=== PATIENT | female | born 1985 | race Caucasian/White ===

== ENCOUNTER 2017-11-02 19:57 | Emergency (ER) | payer MEDICAID ==
[~2017-11-02] VITALS: Ht 154.9 cm; Wt 59.0 kg
[~2017-11-02 19:57] MED LIST: DM/P295L17 PO; PHEN1PAC PO
[2017-11-02] MEDS ORDERED: SODIUM CHLORIDE 0.9% 1,000 ML IV ONE ×2 (23:10)
[2017-11-02 23:51] LABS: CLARITY URINE TURBID (CLEAR); COLOR URINE YELLOW (YELLOW); KETONES URINE NEGATIVE (NEGATIVE); LEUKOCYTE ESTERASE URINE 3+ (NEGATIVE); NITRITE URINE NEGATIVE (NEGATIVE); OCCULT BLOOD URINE 2+ (NEGATIVE); PH URINE 5.5 (4.5-8.0); PROTEIN URINE TRACE (NEGATIVE); SPECIFIC GRAVITY URINE 1.019 (1.005-1.030); UROBILINOGEN URINE 0.2 E.U./dL (0.2-1.0)
[2017-11-03 00:34] LABS: *AMPHETAMINES SCREEN URINE NEGATIVE (NEGATIVE); *BARBITURATES SCREEN URINE NEGATIVE (NEGATIVE); *BENZODIAZEPINES SCREEN URINE NEGATIVE (NEGATIVE); *COCAINE SCREEN URINE NEGATIVE (NEGATIVE); CANNABINOID URINE SCREEN NEGATIVE (NEGATIVE); METHADONE URINE SCREEN NEGATIVE (NEGATIVE); OPIATES URINE SCREEN NEGATIVE (NEGATIVE); PHENCYCLIDINE URINE SCREEN NEGATIVE (NEGATIVE)
[2017-11-03] MEDS ORDERED: CEFTRIAXONE 1 G PREMIX 50 ML IV NR (00:45)
[2017-11-03 01:10] LABS: BASOPHILS % 0.4 % (0.0-2.0); EOSINOPHILS % 1.4 % (0.0-5.0); LYMPHOCYTES % 22.9 % (20.0-50.0); MEAN CORPUSCULAR HEMOGLOBIN 14.6 pg (28.0-32.0); MEAN CORPUSCULAR VOLUME 51.8 fL (81.0-99.0); MEAN PLATELET VOLUME 8.6 fl (7.4-10.4); MONOCYTES % 5.3 % (2.0-8.0); PLATELET 425 x1000/uL (130-400); RED BLOOD CELL COUNT 3.79 mill/uL (4.2-5.4); RED CELL DISTRIBUTION WIDTH 19.7 % (11.6-14.6)
[2017-11-03 01:13] LABS: PROTHROMBIN TIME 10.7 sec (9.4-11.6)
[2017-11-03 01:17] LABS: HEMATOCRIT. 19.6 % (36.0-48.0); HEMOGLOBIN. 5.5 g/dL (12.0-16.0)
[2017-11-03 01:23] LABS: CHLORIDE 106 mEq/L (98-107)
[2017-11-03 01:40] LABS: CARBON DIOXIDE 27 mEq/L (21-32); ETHANOL BLOOD < 10 mg/dL
[2017-11-03 01:48] LABS: B-HCG QUANTITATIVE 104485 mIU/mL (<3)
[2017-11-03] MEDS ORDERED: POTASSIUM BICARB/CIT ACID 25 MEQ TABLET.EFF PO NR (03:30)
[2017-11-03 05:38] LABS: PLATELET ESTIMATE SLIGHTLY INCREASED
[2017-11-03 08:57] VITALS: BP 123/81
== END 2017-11-03 08:59 | disposition home or self-care (01) ==
LOC: ER 21:08
DX: O99.011 Anemia complicating pregnancy, first trimester (principal); O23.41 Unspecified infection of urinary tract in pregnancy, first trimester; O99.281 Endocrine, nutritional and metabolic diseases complicating pregnancy, first trimester; D50.9 Iron deficiency anemia, unspecified; E87.6 Hypokalemia; Z3A.08 8 weeks gestation of pregnancy
CPT/HCPCS: 36415; 76801; 76817; 80053; 80305; 81001; 83605; 83690; 84702; 85025; 85044; 85610; 86850; 86900; 86901; 86920; 87077; 87086; 87186; 96361; 96365; 99291; G0482; J0696; J7030; P9016

== ENCOUNTER 2017-11-08 18:12 | Emergency (ER) | payer MEDICAID ==
[~2017-11-08] VITALS: Ht 157.5 cm; Wt 59.9 kg
[2017-11-09 01:03] LABS: CLARITY URINE CLEAR (CLEAR); COLOR URINE YELLOW (YELLOW); KETONES URINE TRACE (NEGATIVE); LEUKOCYTE ESTERASE URINE 2+ (NEGATIVE); NITRITE URINE NEGATIVE (NEGATIVE); OCCULT BLOOD URINE NEGATIVE (NEGATIVE); PH URINE 5.5 (4.5-8.0); PROTEIN URINE NEGATIVE (NEGATIVE); SPECIFIC GRAVITY URINE 1.026 (1.005-1.030)
[2017-11-09 01:25] LABS: BASOPHILS % 0.4 % (0.0-2.0); EOSINOPHILS % 0.8 % (0.0-5.0); HEMATOCRIT. 25.6 % (36.0-48.0); HEMOGLOBIN. 7.4 g/dL (12.0-16.0); LYMPHOCYTES % 21.5 % (20.0-50.0); MEAN CORPUSCULAR HEMOGLOBIN 17.1 pg (28.0-32.0); MEAN CORPUSCULAR VOLUME 59.1 fL (81.0-99.0); MEAN PLATELET VOLUME 8.8 fl (7.4-10.4); MONOCYTES % 4.9 % (2.0-8.0); NEUTROPHILS % 72.4 % (40.0-76.0); PLATELET 374 x1000/uL (130-400); RED BLOOD CELL COUNT 4.33 mill/uL (4.2-5.4); RED CELL DISTRIBUTION WIDTH 32.6 % (11.6-14.6)
[2017-11-09 01:30] LABS: CHLORIDE 107 mEq/L (98-107)
[2017-11-09 01:31] LABS: PROTHROMBIN TIME 10.5 sec (9.4-11.6)
[2017-11-09 01:55] LABS: B-HCG QUANTITATIVE 126366 mIU/mL (<3)
[2017-11-09 03:10] VITALS: BP 127/57
== END 2017-11-09 03:10 | disposition home or self-care (01) ==
LOC: ER 20:37
DX: O99.011 Anemia complicating pregnancy, first trimester (principal); Z98.890 Other specified postprocedural states; Z3A.09 9 weeks gestation of pregnancy
CPT/HCPCS: 36415; 36430; 76801; 76817; 80053; 81001; 81025; 84702; 85025; 85044; 85610; 86850; 86900; 86901; 87086; 99285; Z7610

== ENCOUNTER 2017-11-12 23:17 | Emergency (ER) | payer MEDICAID ==
[~2017-11-12] VITALS: Ht 157.5 cm; Wt 59.0 kg
[2017-11-13] VITALS: BP 124/68
== END 2017-11-13 00:32 | disposition left against medical advice (07) ==
LOC: ER 23:17
DX: M25.571 Pain in right ankle and joints of right foot (principal); Z53.21 Procedure and treatment not carried out due to patient leaving prior to being seen by health care provider

== ENCOUNTER 2017-12-13 21:14 | Emergency (ER) | payer MEDICAID ==
[~2017-12-13] VITALS: Ht 157.5 cm; Wt 61.4 kg
[2017-12-14] MEDS ORDERED: SODIUM CHLORIDE 0.9% 1,000 ML IV ONE (05:17)
[2017-12-14] MEDS ORDERED: ACETAMINOPHEN 325MG TABLET PO PRN (05:30)
[2017-12-14 06:39] LABS: CHLORIDE 107 mEq/L (98-107); PROTHROMBIN TIME 10.3 sec (9.4-11.6)
[2017-12-14 06:51] LABS: BASOPHILS % 0.2 % (0.0-2.0); EOSINOPHILS % 0.5 % (0.0-5.0); HEMATOCRIT. 30.4 % (36.0-48.0); HEMOGLOBIN. 9.9 g/dL (12.0-16.0); LYMPHOCYTES % 25.4 % (20.0-50.0); MEAN CORPUSCULAR VOLUME 73.8 fL (81.0-99.0); MEAN PLATELET VOLUME 9.4 fl (7.4-10.4); MONOCYTES % 6.4 % (2.0-8.0); NEUTROPHILS % 67.5 % (40.0-76.0); PLATELET 273 x1000/uL (130-400); RED BLOOD CELL COUNT 4.11 mill/uL (4.2-5.4); RED CELL DISTRIBUTION WIDTH 32.9 % (11.6-14.6)
[2017-12-14 07:10] LABS: B-HCG QUANTITATIVE 70315 mIU/mL (<3)
[2017-12-14 07:11] LABS: CLARITY URINE CLOUDY (CLEAR); COLOR URINE YELLOW (YELLOW); KETONES URINE NEGATIVE (NEGATIVE); LEUKOCYTE ESTERASE URINE 3+ (NEGATIVE); NITRITE URINE POSITIVE (NEGATIVE); OCCULT BLOOD URINE 3+ (NEGATIVE); PH URINE 6.5 (4.5-8.0); PROTEIN URINE TRACE (NEGATIVE)
[2017-12-14 07:46] LABS: PLATELET ESTIMATE NORMAL
[2017-12-14 08:07] LABS: *AMPHETAMINES SCREEN URINE NEGATIVE (NEGATIVE); *BARBITURATES SCREEN URINE NEGATIVE (NEGATIVE); *BENZODIAZEPINES SCREEN URINE NEGATIVE (NEGATIVE); *COCAINE SCREEN URINE NEGATIVE (NEGATIVE); CANNABINOID URINE SCREEN NEGATIVE (NEGATIVE); METHADONE URINE SCREEN NEGATIVE (NEGATIVE); OPIATES URINE SCREEN NEGATIVE (NEGATIVE); PHENCYCLIDINE URINE SCREEN NEGATIVE (NEGATIVE)
[2017-12-14 09:48] VITALS: BP 121/65
== END 2017-12-14 10:30 | disposition home or self-care (01) ==
LOC: ER 21:14
DX: O20.0 Threatened abortion (principal); O23.11 Infections of bladder in pregnancy, first trimester; O34.11 Maternal care for benign tumor of corpus uteri, first trimester; Z3A.10 10 weeks gestation of pregnancy
CPT/HCPCS: 36415; 76805; 80053; 80305; 81003; 84702; 85025; 85610; 96360; 96361; 99285; J7030; Z7610

== ENCOUNTER 2018-08-03 07:50 | Inpatient (IN) | payer MEDICAID ==
[2018-08-03] VITALS: BP 98/45
[~2018-08-03] VITALS: Ht 154.9 cm; Wt 60.8 kg
[2018-08-03 10:07] LABS: CLARITY URINE CLOUDY (CLEAR); COLOR URINE YELLOW (YELLOW); KETONES URINE NEGATIVE (NEGATIVE); LEUKOCYTE ESTERASE URINE TRACE (NEGATIVE); NITRITE URINE NEGATIVE (NEGATIVE); OCCULT BLOOD URINE NEGATIVE (NEGATIVE); PH URINE 5.5 (4.5-8.0); PROTEIN URINE TRACE (NEGATIVE); SPECIFIC GRAVITY URINE 1.021 (1.005-1.030); UROBILINOGEN URINE 0.2 E.U./dL (0.2-1.0)
[2018-08-03 10:44] LABS: BASOPHILS % 0.2 % (0.0-2.0); EOSINOPHILS % 0.8 % (0.0-5.0); HEMATOCRIT. 22.4 % (36.0-48.0); HEMOGLOBIN. 7.2 g/dL (12.0-16.0); LYMPHOCYTES % 16.2 % (20.0-50.0); MEAN CORPUSCULAR HEMOGLOBIN 22.8 pg (28.0-32.0); MEAN CORPUSCULAR VOLUME 71.7 fL (81.0-99.0); MEAN PLATELET VOLUME 7.2 fl (7.4-10.4); MONOCYTES % 4.7 % (2.0-8.0); NEUTROPHILS % 78.1 % (40.0-76.0); PLATELET 521 x1000/uL (130-400); RED BLOOD CELL COUNT 3.13 mill/uL (4.2-5.4); RED CELL DISTRIBUTION WIDTH 19.9 % (11.6-14.6)
[2018-08-03 10:49] LABS: INR 1.1; PROTHROMBIN TIME 10.7 sec (9.1-11.1)
[2018-08-03 10:55] LABS: CHLORIDE 109 mEq/L (98-107)
[2018-08-03] MEDS ORDERED: NA PHOS,M-B/NA PHOS,DI-BA ENEMA 118ML PR PRN (12:30)
[2018-08-03] MEDS ORDERED: ACETAMINOPHEN 650MG SUPP PR PRN (12:30)
[2018-08-03] MEDS ORDERED: MAGNESIUM/ALUMINUM HYDROXIDE/SIMETHICONE 30ML UDC PO PRN (12:30)
[2018-08-03] MEDS ORDERED: ONDANSETRON HCL 4MG/2ML INJ IV PRN (12:30)
[2018-08-03] MEDS ORDERED: DIPHENHYDRAMINE 50MG/ML VIAL IV PRN (12:30)
[2018-08-03] MEDS ORDERED: CLONIDINE 0.1MG TABLET PO PRN (12:30)
[2018-08-03] MEDS ORDERED: HYDROCODONE/ACETAMINOPHEN 5/325MG TABLET PO PRN (12:30)
[2018-08-03] MEDS ORDERED: IPRATROPIUM/ALBUTEROL 0.5-3(2.5)MG/3ML NEB INH PRN (12:30)
[2018-08-03] MEDS ORDERED: IOHEXOL-300 100 ML BOTTLE ONE (13:56)
[2018-08-03 13:59] LABS: UCG SCREEN NEGATIVE
[2018-08-03] MEDS ORDERED: KCL 20MEQ/100ML PREMIX 100 ML IV NR (14:00)
[2018-08-03] MEDS ORDERED: PIPERACILLIN/TAZ 3.375G PREMIX 50 ML IV NR (14:12)
[2018-08-03 14:21] LABS: *AMPHETAMINES SCREEN URINE NEGATIVE (NEGATIVE); *BARBITURATES SCREEN URINE NEGATIVE (NEGATIVE); *BENZODIAZEPINES SCREEN URINE NEGATIVE (NEGATIVE); *COCAINE SCREEN URINE NEGATIVE (NEGATIVE); CANNABINOID URINE SCREEN NEGATIVE (NEGATIVE); METHADONE URINE SCREEN NEGATIVE (NEGATIVE); OPIATES URINE SCREEN NEGATIVE (NEGATIVE); PHENCYCLIDINE URINE SCREEN NEGATIVE (NEGATIVE)
[2018-08-03 16:31] VITALS: BP 132/72
[2018-08-03] MEDS ORDERED: PREN-142 MT (17:00)
[2018-08-03] MEDS ORDERED: FERR-71 MT (17:00)
[2018-08-03] MEDS ORDERED: VANCOMYCIN 1250MG in DEXTROSE 5% WATER 250ML IV NR (18:00)
[2018-08-03] MEDS: DEXT 5%/0.45% NACL 1000ML 1,000 ML IV SCH (18:19)
[2018-08-03 20:00] VITALS: BP 131/79
[2018-08-03] MEDS: PIPERACILLIN/TAZ 3.375G PREMIX 50 ML IV SCH (20:05)
[2018-08-03] MEDS: ACETAMINOPHEN 325MG TABLET PO PRN (20:38)
[2018-08-03 21:20] VITALS: BP 107/61
[2018-08-04] VITALS (10 sets, daily range): BP systolic 98–138; BP diastolic 45–97
[2018-08-04] MEDS: DEXT 5%/0.45% NACL 1000ML 1,000 ML IV SCH ×2 (01:21→14:04)
[2018-08-04] MEDS: ACETAMINOPHEN 325MG TABLET PO PRN (03:05)
[2018-08-04] MEDS: PIPERACILLIN/TAZ 3.375G PREMIX 50 ML IV SCH (03:08)
[2018-08-04] MEDS ORDERED: VANCOMYCIN 1 G PREMIX 200 ML IV SCH ×2 (12:00)
[2018-08-04] MEDS ORDERED: PIPERACILLIN/TAZ 3.375G PREMIX 50 ML IV SCH (14:00)
[2018-08-04 15:29] LABS: BASOPHILS % 0.3 % (0.0-2.0); EOSINOPHILS % 1.6 % (0.0-5.0); HEMATOCRIT. 25.4 % (36.0-48.0); HEMOGLOBIN. 8.2 g/dL (12.0-16.0); LYMPHOCYTES % 17.9 % (20.0-50.0); MEAN PLATELET VOLUME 7.5 fl (7.4-10.4); NEUTROPHILS % 72.2 % (40.0-76.0); PLATELET 494 x1000/uL (130-400); RED BLOOD CELL COUNT 3.44 mill/uL (4.2-5.4); RED CELL DISTRIBUTION WIDTH 21.4 % (11.6-14.6)
[2018-08-04 15:45] LABS: CHLORIDE 107 mEq/L (98-107)
[2018-08-04 15:57] LABS: HDL CHOLESTEROL 26 mg/dL (40-59); LDL CHOLESTEROL 61 mg/dL (5-100); T4 FREE 1.15 ng/dL (0.76-1.46)
[2018-08-04] MEDS ORDERED: POTASSIUM CHLORIDE 20MEQ TABLET SR PO NR (16:45)
[2018-08-04] MEDS ORDERED: FERROUS SULFATE 325MG TABLET PO SCH (17:15)
[2018-08-04] MEDS ORDERED: LEVO500T2 PO (17:23)
[2018-08-06 09:07] LABS: ANTI-DNA DOUBLE STRANDED QUANT 1 IU/mL (0-9)
[2018-08-08 14:19] LABS: ANA IFA Negative (.)
== END 2018-08-04 18:45 | disposition home or self-care (01) | DRG 346 ==
LOC: ER 07:50 → SUPCPDRO 12:20 → 6EST 12:44 → ENRESERV 14:58 → 5WST 21:20
PROVIDERS: ADMIT Internal Medicine; ATTEND Internal Medicine
PROC: 30233N1 Transfusion of Nonautologous Red Blood Cells into Peripheral Vein, Percutaneous Approach (ICD-10-PCS; principal; 2018-08-04)
DX: M35.9 Systemic involvement of connective tissue, unspecified (principal); L02.211 Cutaneous abscess of abdominal wall; E86.0 Dehydration; D64.9 Anemia, unspecified; S30.1XXA Contusion of abdominal wall, initial encounter; E87.6 Hypokalemia; N39.0 Urinary tract infection, site not specified; R23.8 Other skin changes; X58.XXXA Exposure to other specified factors, initial encounter; Z98.891 History of uterine scar from previous surgery; Y93.89 Activity, other specified; Y92.89 Other specified places as the place of occurrence of the external cause; Y99.8 Other external cause status
CPT/HCPCS: 36415; 71045; 74177; 76857; 80061; 80305; 81025; 83880; 84439; 84443; 85651; 86038; 86060; 86140; 86225; 86256; 86850; 86900; 86920; 87077; 93306; 93970; 99285; J2543; J3370; J3480; J7030; J7040; J7060; P9016; Q9967

== ENCOUNTER 2019-08-01 16:25 | Inpatient (IN) | payer MEDICAID ==
[~2019-08-01] VITALS: Ht 154.9 cm; Wt 72.6 kg
[~2019-08-01 16:25] MED LIST changes: +FERR-71 MT; +LEVO500T2 PO; +PRENATAL ONE T1 EACH MT
[2019-08-01] MEDS ORDERED: FAMOTIDINE 20MG/2ML VIAL IV STA (17:22)
[2019-08-01] MEDS ORDERED: SODIUM CHLORIDE 0.9% 1,000 ML IV ONE (17:22)
[2019-08-01 18:00] LABS: BASOPHILS % 0.3 % (0.0-2.0); EOSINOPHILS % 0.5 % (0.0-5.0); LYMPHOCYTES % 19.9 % (20.0-50.0); MEAN CORPUSCULAR HEMOGLOBIN 14.2 pg (28.0-32.0); MEAN CORPUSCULAR VOLUME 52.8 fL (81.0-99.0); MEAN PLATELET VOLUME 8.6 fl (7.4-10.4); MONOCYTES % 5.3 % (2.0-8.0); PLATELET 420 x1000/uL (130-400); RED BLOOD CELL COUNT 3.74 mill/uL (4.2-5.4); RED CELL DISTRIBUTION WIDTH 19.4 % (11.6-14.6)
[2019-08-01 18:02] LABS: CHLORIDE 108 mEq/L (98-107); PROTHROMBIN TIME 10.1 sec (9.6-11.0)
[2019-08-01 18:03] LABS: HCG SCREEN NEGATIVE; HEMATOCRIT. 19.7 % (36.0-48.0); HEMOGLOBIN. 5.3 g/dL (12.0-16.0)
[2019-08-01 18:20] LABS: PLATELET ESTIMATE INCREASED
[2019-08-01 18:47] LABS: CLARITY URINE CLEAR (CLEAR); COLOR URINE YELLOW (YELLOW); KETONES URINE NEGATIVE (NEGATIVE); LEUKOCYTE ESTERASE URINE TRACE (NEGATIVE); NITRITE URINE NEGATIVE (NEGATIVE); OCCULT BLOOD URINE 2+ (NEGATIVE); PROTEIN URINE 3+ (NEGATIVE); SPECIFIC GRAVITY URINE 1.018 (1.005-1.030); UROBILINOGEN URINE 0.2 E.U./dL (0.2-1.0)
[2019-08-02] VITALS (9 sets, daily range): BP systolic 110–142; BP diastolic 54–78
[2019-08-02] MEDS ORDERED: PANTOPRAZOLE SODIUM 40 MG/VIAL IV SCH (09:00)
[2019-08-02] MEDS: DEXT 5%/0.45% NACL 1000ML 1,000 ML IV SCH ×2 (09:11→11:45)
[2019-08-02 09:29] LABS: BASOPHILS % 0.4 % (0.0-2.0); EOSINOPHILS % 1.2 % (0.0-5.0); HEMATOCRIT. 27.3 % (36.0-48.0); HEMOGLOBIN. 8.2 g/dL (12.0-16.0); LYMPHOCYTES % 21.3 % (20.0-50.0); MEAN CORPUSCULAR HEMOGLOBIN 18.3 pg (28.0-32.0); MEAN CORPUSCULAR VOLUME 60.8 fL (81.0-99.0); MEAN PLATELET VOLUME 8.6 fl (7.4-10.4); MONOCYTES % 5.6 % (2.0-8.0); NEUTROPHILS % 71.5 % (40.0-76.0); PLATELET 348 x1000/uL (130-400); RED BLOOD CELL COUNT 4.49 mill/uL (4.2-5.4); RED CELL DISTRIBUTION WIDTH 30.4 % (11.6-14.6)
[2019-08-02 09:38] LABS: CHLORIDE 111 mEq/L (98-107)
[2019-08-02] MEDS ORDERED: METRONIDAZOLE 500MG TABLET PO SCH (14:00)
[2019-08-02] MEDS ORDERED: HYDRALAZINE 20MG/ML VIAL IV PRN (15:30)
[2019-08-02] MEDS ORDERED: ACETAMINOPHEN 325MG TABLET PO PRN (15:30)
[2019-08-02] MEDS ORDERED: LOPERAMIDE HCL 2MG CAPSULE PO PRN (15:30)
[2019-08-02] MEDS ORDERED: ONDANSETRON 4MG ODT PO PRN (15:30)
[2019-08-02] MEDS ORDERED: DIPHENHYDRAMINE 50MG/ML VIAL IV PRN (15:30)
[2019-08-02] MEDS ORDERED: MORPHINE SULFATE 2 MG/ML CPJ (NOT FOR IM USE) IV PRN (15:30)
[2019-08-02] MEDS ORDERED: ACETAMINOPHEN 650MG SUPP PR PRN (15:30)
[2019-08-02 16:30] LABS: HEMATOCRIT 29.5 % (36.0-48.0); HEMOGLOBIN 8.6 g/dL (12.0-16.0)
[2019-08-02 16:43] LABS: TOTAL IRON BINDING CAPACITY 404 ug/dL (250-450)
[2019-08-02 16:44] LABS: HAPTOGLOBIN 152 mg/dL (30-200)
[2019-08-02 17:07] LABS: VITAMIN B12 SERUM 541 pg/mL (211-911)
[2019-08-02] MEDS ORDERED: METR500T PO (17:20)
[2019-08-02] MEDS ORDERED: LEVO500T2 MT (17:20)
[2019-08-02] MEDS ORDERED: LEVOFLOXACIN 500MG PREMIX 100 ML IV SCH (18:00)
== END 2019-08-02 21:15 | disposition home or self-care (01) | DRG 663 ==
LOC: ER 19:33 → 7WST 19:55 → ENRESERV 21:12
PROVIDERS: ADMIT Internal Medicine; ATTEND Internal Medicine
PROC: 30233N1 Transfusion of Nonautologous Red Blood Cells into Peripheral Vein, Percutaneous Approach (ICD-10-PCS; principal; 2019-08-01)
DX: D50.0 Iron deficiency anemia secondary to blood loss (chronic) (principal); E86.0 Dehydration; N39.0 Urinary tract infection, site not specified; K52.9 Noninfective gastroenteritis and colitis, unspecified; Z98.891 History of uterine scar from previous surgery; N93.8 Other specified abnormal uterine and vaginal bleeding
CPT/HCPCS: 36415; 76830; 76856; 80048; 81003; 82607; 83010; 83540; 83550; 84703; 85014; 85018; 85044; 85651; 86850; 86900; 86920; 87045; 87449; 87493; 93970; 99285; C9113; J1956; J3490; J7030; P9016